=== PATIENT | male | born 1940 | race Caucasian/White ===

== ENCOUNTER → 2016-08-09 | Outpatient (CLI) | payer MEDICARE, BC ==
[~2016-08-09] MED LIST: ALLO300T46 PO; AMLO-145 PO; ATOR20TA38 PO; CHOL20003 PO; FENO135C4 PO; FERROUS SULFATE; GABA300C16 PO; LACT1CAP56 PO; METO-448 PO; PANT40TA4 PO; VALS320T11 PO; VITAMIN C PO
--- NOTE | 2016-08-09 15:05 | RADRPT ---
PROCEDURE: XR left knee. CLINICAL INDICATION: Knee pain. TECHNIQUE: AP weightbearing, lateral weightbearing and sunrise views are available for review. COMPARISON: 03/02/2014 FINDINGS: There is a small suprapatellar joint effusion. There is a total knee replacement. There is no evidence of loosening of the prosthesis. There is no evidence of hardware failure. The osseous structures are normal in mineralization, architecture and alignment No acute fracture or dislocation is seen.No osseous lesions are identified. The soft tiss ues are unremarkable . IMPRESSION: Small suprapatellar joint effusion Unremarkable total knee replacement. RPTAT: [facility] .Dougie Felix MD, MD Date Time Electronically viewed and signed by .Dougie Felix MD, on 08/09/2016 15:05 .B/
--- NOTE | 2016-08-09 15:44 | RADRPT ---
PROCEDURE: XR pelvis/left hip. CLINICAL INDICATION: Hip pain TECHNIQUE: AP pelvis/AP and lateral left hip views performed COMPARISON: No prior studies are available for comparison. FINDINGS: There is mild bilateral hip osteoarthrosis. This is associated with joint space narrowing, subchondr al sclerosis and osteophytosis. There is normal mineralization. No fractures or osseous lesions ar e identified. The soft tissues are unremarkable. IMPRESSION: Mild bilateral hip osteoarthrosis. RPTAT: [facility] .Dougie Felix MD, Date Time Electronically viewed and signed by .Dougie Felix MD, on 08/09/2016 15:44 .B/
== END | disposition home or self-care (01) ==
LOC: HKI 14:03
PROVIDERS: ATTEND Orthopaedic Surgery
DX: Z09 Encounter for follow-up examination after completed treatment for conditions other than malignant neoplasm (principal); Z96.652 Presence of left artificial knee joint; M25.462 Effusion, left knee
CPT/HCPCS: 73502; 73562; G0463